=== PATIENT | female | born 1980 | race Caucasian/White ===

== ENCOUNTER 2018-05-02 07:30 | Outpatient (CLI) | payer OTHER | END 2018-05-02 07:31 | disposition home or self-care (01) | LOC: BICULT 07:30 | PROVIDERS: ATTEND Family Medicine | DX: R10.31 Right lower quadrant pain (principal); R10.32 Left lower quadrant pain; K80.20 Calculus of gallbladder without cholecystitis without obstruction; R16.0 Hepatomegaly, not elsewhere classified | CPT/HCPCS: 76700; 76856 ==

== ENCOUNTER 2018-06-24 09:13 | Outpatient (CLI) | payer OTHER ==
[~2018-06-24 09:13] MED LIST: ISOVUE-370 76%-LOCM 1 ML ONE
== END 2018-06-24 09:14 | disposition home or self-care (01) ==
LOC: BICCT 09:13
PROVIDERS: ATTEND Family Medicine
DX: R16.0 Hepatomegaly, not elsewhere classified (principal)
CPT/HCPCS: 74170